=== PATIENT | female | born 1970 | race Caucasian/White ===

== ENCOUNTER 2017-09-06 13:18 | Emergency (ER) | payer OTHER ==
[~2017-09-06] VITALS: Ht 172.7 cm; Wt 140.2 kg
[~2017-09-06 13:18] MED LIST: AMBIEN 10 MG TA10 MG PO; AMBIEN 5 MG TABL5 M1; ASPIR-LOW81 MG PO; ASPIRIN EC81 M1 PO; ATIVAN1 MG PO; ATORVASTATIN CA40 MG PO; CIPROFLOXACIN500 M1 PO; CLIMARA 0.00.0375 MG; CREON DR 24,001 EACH; ESTRACE2 M3 PO; ESTRACE2 MG PO; ESTRADIOL 1 MG T1 M1 PO; FUROSEMIDE 20 M20 M1 PO; HYOSCYAMINE0.15 M1 PO; LASIX 20 MG TAB20 MG PO; LATUDA80 MG PO; LISINOPRIL2.5 MG; LISINOPRIL20 MG PO; NAPROSYN375 MG PO; NORCO 5-325 TA1 EACH PO; PREDNISONE 5 MG5 M1 PO; PRISTIQ50 MG PO; PROZAC20 M1 PO; PROZAC20 MG PO; REMERON15 MG PO; SEROQUEL XR 30300 M1 PO; TENORMIN PO; TOPAMAX50 MG PO; TOPROL XL25 MG PO; TRAMADOL 50 MG50 MG PO; VALIUM10 MG PO; VENLAFAXINE HC150 M1 PO; VENTOLIN HFA 1818 GM INH; VITAMIN D32000 UNIT PO
[2017-09-06 13:39] LABS: URINE BILIRUBIN NEGATIVE (Negative); URINE BLOOD NEGATIVE (Negative); URINE CLARITY CLEAR; URINE COLOR YELLOW; URINE GLUCOSE-RANDOM NEGATIVE (Negative); URINE KETONES TRACE (Negative); URINE LEUKOCYTES-REFLEX NEGATIVE (Negative); URINE NITRITE-REFLEX NEGATIVE (Negative); URINE PROTEIN TRACE (Negative); URINE SPECIFIC GRAVITY 1.015 (1.005-1.030)
[2017-09-06] MEDS ORDERED: ALPRAZOLAM 0.50.5 MG PO (13:47)
[2017-09-06] MEDS ORDERED: WELLBUTRIN XL300 MG PO (13:47)
[2017-09-06] MEDS ORDERED: LOPRESSOR25 PO (13:48)
[2017-09-06] MEDS ORDERED: OXYCODONE HCL 55 MG PO (13:49)
[2017-09-06 13:58] LABS: ABSOLUTE EOSINOPHILS 0.4 thou/uL (0.0-0.7); ABSOLUTE LYMPHOCYTES 1.5 thou/uL (0.8-5.3); ABSOLUTE MONOCYTES 1.2 thou/uL (0.0-1.2); BASOPHILS 0.2 %; EOSINOPHILS 2.6 %; HEMATOCRIT 32.4 % (37.0-47.0); HEMOGLOBIN 10.4 gm/dL (12.0-15.0); LYMPHOCYTES 10.6 %; MCH 27.9 pg (26.0-34.0); MCHC 32.2 g/dL (28.0-37.0); MCV 86.7 fL (80.0-100.0); MONOCYTES 8.6 %; MPV 8.5 fl. (7.2-11.1); NUCLEATED RBCS 0 /100WBC; PLATELET COUNT* 322 thou/uL (150-400); RBC 3.74 mil/uL (4.20-5.00); RDW-CV 15.1 % (10.5-14.5); WBC 14.1 thou/uL (4.0-11.0)
[2017-09-06 14:06] LABS: ANION GAP 10 mmol/L (7-16); BUN 21 mg/dL (7-18); CALCIUM 9.2 mg/dL (8.5-10.1); CHLORIDE 101 mmol/L (98-107); CO2 26 mmol/L (21-32); CREATININE 1.5 mg/dL (0.6-1.3); GLUCOSE 111 mg/dL (70-99); POTASSIUM 3.8 mmol/L (3.5-5.1); SODIUM 137 mmol/L (136-145)
[2017-09-06 14:07] LABS: AMP/METHAMP Negative (Negative); BARBITURATES Negative (Negative); BENZODIAZEPINES POSITIVE (Negative); COCAINE Negative (Negative); METHADONE Negative (Negative); OPIATES POSITIVE (Negative); PCP Negative (Negative); THC Negative (Negative)
[2017-09-06 14:13] LABS: ALBUMIN 3.1 g/dL (3.4-5.0); ALKALINE PHOSPHATASE 146 U/L (46-116); LIPASE 42 U/L (73-393); SGOT 49 U/L (15-37); SGPT 80 U/L (30-65); TOTAL BILIRUBIN 0.7 mg/dL (<0.1-1.0); TOTAL PROTEIN 6.7 g/dL (6.4-8.2); TROPONIN-I LEVEL <0.06 ng/mL (<0.06)
--- NOTE | 2017-09-06 16:27 | EKG ---
[place] [address] ELECTROCARDIOGRAM REPORT Name: OMKAR SCHERER Room: [facility]#: [id number] Admission: 09/06/17 Attend Phys: Discharge: Date of : 74 Report #: [id number] THIS REPORT FOR: //name// [facility] ED Test Date: 2017-09-06 Test Time: 13:39:34 Pat Name: OMKAR SCHERER Department: Room: Gender: F Rod Buster Helper: : 1970 Requested By: Elisha Roth Order Number: [id number] MD: Everardo Hunt Measurements Intervals [place] Rate: 118 P: 30 RI: 165 QRS: 7 QRSD: 84 T: 18 QT: 339 QTc: 476 Interpretive Statements Sinus tachycardia Low voltage, precordial leads poor r wave progression Borderline T wave abnormalities Baseline wander in lead(s) II,aVR,aVF,V3,V4,V5,V6 Compared to ECG 12/25/2013 22:01:14 Low QRS voltage now present Electronically Signed On 09-06-2017 16:27:39 CDT by Everardo Hunt [email or web address] <ELECTRONICALLY SIGNED> By: Everardo Hunt MD, [facility] 09/06/17 1627 [id number] Everardo Hunt MD, [facility] /EPI
[2017-09-06 17:56] VITALS: BP 98/44
== END 2017-09-06 17:56 | disposition short-term general hospital (02) ==
LOC: M.ERS 13:18
PROVIDERS: Physician Assistant
DX: M84.48XA Pathological fracture, other site, initial encounter for fracture (principal); K52.9 Noninfective gastroenteritis and colitis, unspecified; K86.1 Other chronic pancreatitis

== ENCOUNTER 2020-09-16 16:21 | Emergency (ER) | payer OTHER ==
[~2020-09-16] VITALS: Ht 172.7 cm; Wt 106.1 kg
[~2020-09-16 16:21] MED LIST changes: +ALPRAZOLAM 0.50.5 MG PO; +LOPRESSOR25 PO; +OXYCODONE HCL 55 MG PO; +WELLBUTRIN XL300 MG PO
[2020-09-16] MEDS ORDERED: TRAZODONE HCL50 MG PO (16:37)
[2020-09-16] MEDS ORDERED: HYDROCODON-ACE1 EAC7 PO (18:21)
[2020-09-16 19:15] VITALS: BP 118/67
== END 2020-09-16 19:15 | disposition home or self-care (01) ==
LOC: M.ERS 16:21
DX: S82.491A Other fracture of shaft of right fibula, initial encounter for closed fracture (principal); Z90.710 Acquired absence of both cervix and uterus; Z88.6 Allergy status to analgesic agent; W01.0XXA Fall on same level from slipping, tripping and stumbling without subsequent striking against object, initial encounter; Y93.89 Activity, other specified; Y92.89 Other specified places as the place of occurrence of the external cause; Y99.8 Other external cause status

== ENCOUNTER 2021-04-09 13:28 | Emergency (ER) | payer OTHER ==
[~2021-04-09] VITALS: Ht 172.7 cm; Wt 99.8 kg
[~2021-04-09 13:28] MED LIST changes: +HYDROCODON-ACE1 EAC7 PO; +TRAZODONE HCL50 MG PO
[2021-04-09 15:01] LABS: URINE BILIRUBIN NEGATIVE (Negative); URINE BLOOD NEGATIVE (Negative); URINE COLOR YELLOW; URINE GLUCOSE-RANDOM NEGATIVE (Negative); URINE KETONES NEGATIVE (Negative); URINE LEUKOCYTES-REFLEX TRACE (Negative); URINE NITRITE-REFLEX NEGATIVE (Negative); URINE PROTEIN NEGATIVE (Negative); URINE SPECIFIC GRAVITY <= 1.005 (1.005-1.030); URINE UROBILINOGEN 0.2 E.U./dl (0.2-1.0)
[2021-04-09 15:03] LABS: URINE CLARITY HAZY
[2021-04-09 15:10] LABS: BACTERIA-REFLEX None Seen /HPF (None Seen); CASTS None Seen /LPF (None Seen); CRYSTALS None Seen /LPF (None Seen); SQUAMOUS >10 Many /LPF (0-3); URINE RBC 0-2 Rare /HPF (0-2); URINE WBC-REFLEX 0-5 Rare /HPF (0-5)
[2021-04-09 16:08] LABS: ABSOLUTE BASOPHILS 0.1 thou/uL (0.0-0.2); ABSOLUTE EOSINOPHILS 0.3 thou/uL (0.0-0.7); ABSOLUTE MONOCYTES 0.3 thou/uL (0.0-1.2); ABSOLUTE NEUTROPHILS 3.4 thou/uL (1.6-8.1); EOSINOPHILS 5.6 %; HEMATOCRIT 37.4 % (37.0-47.0); HEMOGLOBIN 12.4 gm/dL (12.0-15.0); LYMPHOCYTES 32.6 %; MCH 30.5 pg (26.0-34.0); MCHC 33.1 g/dL (28.0-37.0); MCV 92.2 fL (80.0-100.0); MONOCYTES 4.6 %; MPV 7.8 fl. (7.2-11.1); NUCLEATED RBCS 0 /100WBC; PLATELET COUNT* 274 thou/uL (150-400); POLYS 56.2 %; RBC 4.06 mil/uL (4.20-5.00); RDW-CV 13.1 % (10.5-14.5)
[2021-04-09 16:16] LABS: CALCIUM 8.8 mg/dL (8.5-10.1); CREATININE 0.8 mg/dL (0.6-1.3); POTASSIUM 3.6 mmol/L (3.5-5.1)
[2021-04-09 16:20] LABS: ALBUMIN 4.1 g/dL (3.4-5.0); TOTAL BILIRUBIN 0.3 mg/dL (<0.1-1.0); TOTAL PROTEIN 7.5 g/dL (6.4-8.2)
[2021-04-09] MEDS ORDERED: NORCO5 PO ×2 (19:01→19:20)
[2021-04-09] MEDS ORDERED: ONDANSETRON ODT4 MG PO (19:05)
[2021-04-09 19:31] VITALS: BP 111/62
== END 2021-04-09 19:32 | disposition home or self-care (01) ==
LOC: M.ERS 13:28
PROVIDERS: Physician Assistant
DX: K46.9 Unspecified abdominal hernia without obstruction or gangrene (principal); R11.2 Nausea with vomiting, unspecified; R19.7 Diarrhea, unspecified; Z98.890 Other specified postprocedural states; Z90.711 Acquired absence of uterus with remaining cervical stump; Z98.84 Bariatric surgery status; Z79.899 Other long term (current) drug therapy; Z88.8 Allergy status to other drugs, medicaments and biological substances